=== PATIENT | female | born 1935 | race Two or more races ===

== ENCOUNTER 2019-07-12 13:16 | Inpatient (IN) | payer MEDICARE, MEDICAID ==
[~2019-07-12] VITALS: Ht 160 cm; Wt 59.2 kg
[2019-07-12 14:12] LABS: Basophils # (auto) 0 uL; Basophils % (auto) 0.2 % (0.0-2.0); Eosinophils # (auto) 0 uL; Eosinophils % (auto) 0.1 % (0.0-7.0); Hematocrit 31.4 % (36.0-46.0); Hemoglobin 10.8 g/dL (12.2-16.2); Mean Corpuscular Hemoglobin 30.6 pg (28.0-32.0); Mean Corpuscular Hgb Conc. 34.3 g/dL (32.0-36.0); Mean Corpuscular Volume 89.1 fL (80.0-100.0); Monocytes # (auto) 0.4 uL; Monocytes % (auto) 5.7 % (0.0-12.0); Neutrophils # (auto) 4.3 uL; Nucleated Red Blood Cells % 0.2 %; Platelet Count (auto) 194 10^3/uL (140-450); Red Blood Cells 3.53 10^6/uL (4.0-5.20); Red Cell Distribution Width 15.2 % (11.8-14.3); White Blood Cell 6.7 10^3/uL (4.4-10.8)
[2019-07-12] MEDS ORDERED: InsuLIN REG 1unit/0.01ml Soln (100units/ml) IV ONE (14:15)
[2019-07-12] MEDS ORDERED: SODIUM CHLORIDE 0.9% 1,000 ML IV ONE ×2 (14:15→17:30)
[2019-07-12 14:37] LABS: Alanine Aminotransferase 18 U/L (13-56); Albumin 4.4 g/dL (3.4-5.0); Anion Gap 7 (5-15); Aspartate Aminotransferase 30 U/L (15-37); BUN/Creatinine Ratio 11.5; Blood Urea Nitrogen 17 mg/dL (7-18); Calcium 8.8 mg/dL (8.5-10.1); Carbon Dioxide 25 mmol/L (21-32); Chloride 99 mmol/L (98-107); GFR African American 43 mL/min; GFR Non-African American 36 mL/min; Glucose 145 mg/dL (74-106); Potassium 4.7 mmol/L (3.5-5.1); Sodium 131 mmol/L (136-145)
[2019-07-12 14:42] LABS: Alkaline Phosphatase 44 U/L (45-117); Total Protein 8.1 g/dL (6.4-8.2)
[2019-07-12] MEDS ORDERED: DOCUSATE SOD 100 MG CAP PO PRN (16:15)
[2019-07-12] MEDS ORDERED: ACETAMINOPHEN 500 MG TAB PO PRN (16:15)
[2019-07-12] MEDS ORDERED: ONDANSETRON HCL 4 MG/2 ML VIAL IV PRN (16:15)
[2019-07-12] MEDS ORDERED: DEXTROSE (50%) 50ML SYRG IV PRN (16:15)
[2019-07-12] MEDS ORDERED: MORPHINE SULF INJ 2 MG/ML SYRINGE 1ML IV PRN (16:15)
[2019-07-12] MEDS ORDERED: NITROGLYCERIN 0.4 MG SL TAB SL PRN (16:15)
[2019-07-12] MEDS: ACCU-CHEK COMFORT CURVE STRIP VI SCH ×2 (18:22→22:24)
[2019-07-12] MEDS: InsuLIN REG 1unit/0.01ml Soln (100units/ml) SC SCH ×2 (18:23→22:00)
[2019-07-12 20:10] VITALS: BP 95/59
[2019-07-12 22:00] VITALS: BP 95/59
[2019-07-12] MEDS: MORPHINE SULF INJ 2 MG/ML SYRINGE 1ML IV PRN (22:48)
[2019-07-13] MEDS: MORPHINE SULF INJ 2 MG/ML SYRINGE 1ML IV PRN ×2 (02:51→11:27)
[2019-07-13 05:00] VITALS: BP 88/55
[2019-07-13] MEDS: InsuLIN REG 1unit/0.01ml Soln (100units/ml) SC SCH ×4 (06:43→21:17)
[2019-07-13] MEDS: ACCU-CHEK COMFORT CURVE STRIP VI SCH ×4 (06:43→21:17)
[2019-07-13] MEDS: traMADol HCL 50 MG TAB PO PRN (06:46)
[2019-07-13 08:55] VITALS: BP 105/64
[2019-07-13] MEDS: FAMOTIDINE 20 MG TAB PO SCH (11:26)
[2019-07-13 13:00] VITALS: BP 180/62
[2019-07-13 13:53] LABS: INR 1.04 (0.9-1.15); Partial Thromboplastin Time 27.1 sec (23.64-32.05)
[2019-07-13 17:00] VITALS: BP 108/63
[2019-07-13 22:00] VITALS: BP 95/46
[2019-07-14] VITALS (7 sets, daily range): BP systolic 88–106; BP diastolic 57–61
[2019-07-14] MEDS: InsuLIN REG 1unit/0.01ml Soln (100units/ml) SC SCH ×4 (06:01→22:00)
[2019-07-14] MEDS: ACCU-CHEK COMFORT CURVE STRIP VI SCH ×4 (06:02→22:42)
[2019-07-14] MEDS: FAMOTIDINE 20 MG TAB PO SCH (09:24)
[2019-07-14] MEDS: MORPHINE SULF INJ 2 MG/ML SYRINGE 1ML IV PRN ×2 (09:25→13:44)
[2019-07-15 00:02] LABS: Urine Bacteria NONE SEEN /hpf (None Seen); Urine Blood 1+ /uL (Negative); Urine Specific Gravity 1.005 (1.001-1.035); Urine WBC 2 /hpf (0 - 5)
[2019-07-15 06:04] VITALS: BP 109/60
[2019-07-15] MEDS: InsuLIN REG 1unit/0.01ml Soln (100units/ml) SC SCH ×2 (07:00→11:30)
[2019-07-15] MEDS: ACCU-CHEK COMFORT CURVE STRIP VI SCH ×2 (07:00→13:09)
[2019-07-15] MEDS: MORPHINE SULF INJ 2 MG/ML SYRINGE 1ML IV PRN ×2 (07:01→17:23)
[2019-07-15 08:11] VITALS: BP 94/57
[2019-07-15 09:00] VITALS: BP 109/61
[2019-07-15] MEDS: FAMOTIDINE 20 MG TAB PO SCH (10:43)
[2019-07-15] MEDS: traMADol HCL 50 MG TAB PO PRN (10:43)
[2019-07-15 13:00] VITALS: BP 116/65
== END 2019-07-15 18:15 | disposition home health service (06) | DRG 544 ==
LOC: ER 13:19 → TELE 13:20 → TELE-CENTR 20:26 → CENTRAL 07-13 03:19
PROVIDERS: ADMIT Nurse Practitioner Acute Care; ATTEND Family Medicine
DX: M80.851A Other osteoporosis with current pathological fracture, right femur, initial encounter for fracture (principal); E03.9 Hypothyroidism, unspecified; M19.90 Unspecified osteoarthritis, unspecified site; N18.3 Chronic kidney disease, stage 3 (moderate); D63.8 Anemia in other chronic diseases classified elsewhere; E11.22 Type 2 diabetes mellitus with diabetic chronic kidney disease; W18.39XA Other fall on same level, initial encounter; Z79.84 Long term (current) use of oral hypoglycemic drugs; I12.9 Hypertensive chronic kidney disease with stage 1 through stage 4 chronic kidney disease, or unspecified chronic kidney disease; Y93.89 Activity, other specified; Y92.098 Other place in other non-institutional residence as the place of occurrence of the external cause; Y99.8 Other external cause status
CPT/HCPCS: 36415; 70450; 73502; 80053; 81001; 82962; 83036; 84443; 84484; 85025; 85610; 85730; 86850; 86900; 86901; 93005; 97163; G0378; J1815